=== PATIENT | male | born 1955 ===

== ENCOUNTER 2019-06-27 08:57 | Emergency (ER) | payer MEDICAID ==
[~2019-06-27] VITALS: Ht 165.1 cm; Wt 63.0 kg
[2019-06-27 10:53] VITALS: BP 186/120
== END 2019-06-27 10:54 | disposition home or self-care (01) ==
LOC: ER 08:58
DX: M25.511 Pain in right shoulder (principal)
CPT/HCPCS: 73030; 93005; 99283

== ENCOUNTER 2019-07-02 13:41 | Emergency (ER) | payer MEDICAID ==
[~2019-07-02] VITALS: Ht 165.1 cm; Wt 64.0 kg
[2019-07-02] MEDS ORDERED: nitroGLYCERIN 0.4mg SUBLingual tab SL PRN (14:00)
[2019-07-02 14:08] LABS: BASOPHILS # (AUTO) 0.1 X10'3 (0-0.2); BASOPHILS % (AUTO) 0.4 % (0-1); EOSINOPHILS % (AUTO) 0.1 % (0-6); HEMATOCRIT 38.7 % (42.0-52.0); HEMOGLOBIN 13.1 g/dl (14.0-17.9); LYMPHOCYTES # (AUTO) 1.8 X10'3 (1.1-4.8); LYMPHOCYTES % (AUTO) 5.5 % (21-51); MEAN CORPUSCULAR HGB CONC 33.7 g/dL (33.0-36.5); MEAN CORPUSCULAR VOLUME 91.8 FL (78-98); MEAN PLATELET VOLUME 7.7 FL (7.4-10.4); MONOCYTES # (AUTO) 2.5 X10'3 (0-0.9); MONOCYTES % (AUTO) 7.5 % (2-12); NEUTROPHILS # (AUTO) 29.1 X10'3 (1.8-7.7); NEUTROPHILS % (AUTO) 86.5 % (42-75); PLATELET COUNT 367 X10'3 (140-440); RED BLOOD COUNT 4.22 X10'6 (4.70-6.10); RED CELL DISTRIBUTION WIDTH 13.8 % (11.5-14.5)
[2019-07-02 14:10] LABS: WHITE BLOOD COUNT 33.6 X10'3 (4.5-11.0)
--- NOTE | 2019-07-02 14:18 | NUR ---
PER DR BOURNE: GIVE SL NITRO NOW FOR BP, PATIETN DENIES CHEST PAIN
[2019-07-02 14:20] LABS: PARTIAL THROMBOPLASTIN TIME 28 SECONDS (22-32)
[2019-07-02 14:22] LABS: ALANINE AMINOTRANSFERASE 17 U/L (12-78); ALBUMIN 2.6 G/DL (3.4-5.0); ALBUMIN/GLOBULIN RATIO 0.5 (1.1-1.5); ALKALINE PHOSPHATASE 238 IU/L (46-116); ANION GAP 9 (8-16); ASPARTATE AMINO TRANSFERASE 20 U/L (10-37); BILIRUBIN,TOTAL 0.6 MG/DL (0.1-1.0); BLOOD UREA NITROGEN 11 MG/DL (7-18); BUN/CREATININE RATIO 10.9 (5.4-32.0); CALCIUM 8.2 MG/DL (8.5-10.1); CHLORIDE 107 MMOL/L (99-107); CREATININE 1.01 MG/DL (0.60-1.10); GLUCOSE 133 MG/DL (70-104); SODIUM 143 MMOL/L (135-145); TOTAL CARBON DIOXIDE 26.8 MMOL/L (24-32); TOTAL PROTEIN 7.5 G/DL (6.4-8.2); eGFR 75 ML/MIN
[2019-07-02 14:24] LABS: PLATELET ESTIMATE NORMAL; TOTAL CELLS COUNTED 100
[2019-07-02 14:26] LABS: POTASSIUM 2.9 MMOL/L (3.5-5.1)
[2019-07-02] MEDS ORDERED: potassium Cl 10 mEq/100mL bag IV ONE (14:30)
[2019-07-02] MEDS ORDERED: potassium Cl 20 mEq SR tablet PO ONE (14:30)
[2019-07-02] MEDS ORDERED: labetalol 20mg/4ml (5mg/ml) syringe IV ONE ×2 (14:45→15:50)
--- NOTE | 2019-07-02 14:56 | NUR ---
TORI [id number] [phone] TOOK CLOTHES/WALLET HOME
[2019-07-02 14:58] LABS: CLARITY,URINE CLEAR (Clear); COLOR,URINE YELLOW (Yellow); GLUCOSE, URINE NEGATIVE (Neg); KETONES,URINE NEGATIVE (Neg); LEUKOCYTE ESTERASE ,URINE NEGATIVE (Neg); NITRITES, URINE NEGATIVE (Neg); OCCULT BLOOD,URINE NEGATIVE (Neg); PH,URINE 6.5 (4.8-8.0); PROTEIN,URINE NEGATIVE (Neg)
[2019-07-02 14:59] LABS: UA COLLECTION TYPE CLN CATCH MIDSTREAM
--- NOTE | 2019-07-02 15:00 | NUR ---
NO HOME MEDICATIONS
[2019-07-02] MEDS ORDERED: NO HOME MEDS (15:01)
[2019-07-02] MEDS ORDERED: iohexol 350MG/ML 100ml bottle IV ONE (15:18)
[2019-07-02 15:23] LABS: MAGNESIUM 2.2 MG/DL (1.5-2.4)
--- NOTE | 2019-07-02 15:56 | NUR ---
BACK FROM CT SCAN
[2019-07-02] MEDS ORDERED: aspirin 325mg tablet PO ONE (17:05)
--- NOTE | 2019-07-02 18:32 | NUR ---
attempted to call report to [phone]; on hold for 10 minutes, calling back; patient to go to [facility] room 476B, devulcanizer charger Blossom would like me to give Rose FLOWERS report
--- NOTE | 2019-07-02 18:43 | NUR ---
REPORT GIVEN TO RITU FLOWERS; PATIENT TO GO TO [facility] TO ROOM 479E
--- NOTE | 2019-07-02 18:51 | NUR ---
BEDSIDE REPORT TO [facility] FROM [facility]
[2019-07-02 18:52] VITALS: BP 129/74
== END 2019-07-02 18:58 | disposition short-term general hospital (02) ==
LOC: ER 13:43
DX: I16.0 Hypertensive urgency (principal); M54.6 Pain in thoracic spine; R42 Dizziness and giddiness; Z87.891 Personal history of nicotine dependence
CPT/HCPCS: 36415; 71045; 71275; 74175; 80053; 81003; 83605; 83735; 84145; 84484; 85025; 85610; 85730; 87040; 93005; 96361; 96374; 96376; 99285; J3480; Q9967; J3490